=== PATIENT | female | born 1995 | race Caucasian/White ===

== ENCOUNTER 2022-12-30 07:27 | Inpatient (IN) | payer SELFPAY ==
[2022-12-30] MEDS: Lactated Ringers 1,000 ML IV SCH ×2 (07:27→08:05)
[2022-12-30] MEDS ORDERED: Sodium Chloride 0.9% 20 ML SDV IV PRN (07:36)
[2022-12-30] MEDS ORDERED: Methylergonovine 0.2 MG/1 ML Amp IM PRN (07:36)
[2022-12-30] MEDS ORDERED: Ondansetron 4 MG/2 ML SDV IVPUSH PRN (07:36)
[2022-12-30] MEDS ORDERED: Misoprostol 200 MCG Tab PO PRN (07:36)
[2022-12-30] MEDS ORDERED: Sodium Chloride 0.9% 10 ML Syringe FLUSH PRN (07:36)
[2022-12-30] MEDS ORDERED: Carboprost Tromethamine 250 MCG/1 mL Vial IM PRN (07:36)
[2022-12-30] MEDS ORDERED: Tranexamic Acid 1,000 MG in Sodium Chloride 0.9% 100 ML IV PRN (07:36)
[2022-12-30] MEDS ORDERED: Water For Irrigation,Sterile 1,000 ML Container IRR PRN (07:36)
[2022-12-30] MEDS ORDERED: Lidocaine 1% 50 ML MDV INJECT PRN (07:36)
[2022-12-30] MEDS ORDERED: Sodium Chloride 0.9% 2.5 ML Syringe FLUSH PRN (07:36)
[2022-12-30] MEDS ORDERED: Oxytocin/0.9 % Sodium Chloride 30 UNIT/500 ML BAG IV SCH (07:45)
[2022-12-30] MEDS ORDERED: Oxytocin/0.9 % Sodium Chloride 30 UNIT/500 ML BAG ONE (07:46)
[2022-12-30 07:48] LABS: HEMATOCRIT 39.2 % (36.0-46.0); HEMOGLOBIN 13.5 g/dL (12.0-16.0); MEAN CORPUSCULAR HGB CONC 34.4 g/dL (31.0-37.0); MEAN CORPUSCULAR VOLUME 90.1 fL (80.0-98.0); MEAN PLATELET VOLUME 11.8 fL (7.40-12.00); RED BLOOD CELL COUNT 4.35 M/uL (4.30-5.90); WHITE BLOOD CELL COUNT,WBC 12.15 K/uL (4.0-11.0)
[2022-12-30] MEDS ORDERED: fentaNYL 100 MCG/2 ML SDV ONE (08:03)
[2022-12-30] MEDS ORDERED: Bupivacaine 0.25% 10 ML SDV ONE (08:04)
[2022-12-30] MEDS ORDERED: Ibuprofen 400 MG Tab PO PRN (08:12)
[2022-12-30] MEDS ORDERED: oxyCODONE 5 MG Tab PO PRN (08:12)
[2022-12-30] MEDS ORDERED: Witch Hazel Medicated Pads 40/Jar TOP PRN (08:12)
[2022-12-30] MEDS ORDERED: Lanolin 100% Cream 7 GM Tube TOP PRN (08:12)
[2022-12-30] MEDS ORDERED: Bisacodyl 10 MG Supp RECTAL PRN (08:12)
[2022-12-30] MEDS ORDERED: Benzocaine/Menthol 20%-0.5% Spray 78 GM Cannister TOP PRN (08:12)
[2022-12-30] MEDS ORDERED: Docusate Sodium 100 MG Cap PO PRN (08:12)
[2022-12-30] MEDS ORDERED: Acetaminophen 500 MG Tab PO PRN ×2 (08:12)
[2022-12-30] MEDS ORDERED: Phenylephrine HCl 0.5 MG/5 ML AMP IVPUSH PRN (08:23)
[2022-12-30] MEDS ORDERED: ePHEDrine 50 MG/ML SDV IVPUSH PRN ×2 (08:23)
[2022-12-30] MEDS ORDERED: Ropivacaine HCl/PF 400 MG in Premix Bag 1 BAG EPIDUR SCH (08:30)
[2022-12-30] MEDS ORDERED: Diphtheria,Pertussis(Acell),Tetanus Vaccine 0.5 ML Syringe IM ONE (10:00)
[2022-12-30] MEDS: Ibuprofen 800 MG Tab PO PRN (16:16)
[2022-12-31] MEDS: Ibuprofen 800 MG Tab PO PRN (00:56)
[2022-12-31 06:02] LABS: HEMATOCRIT 34.8 % (36.0-46.0); HEMOGLOBIN 11.7 g/dL (12.0-16.0)
== END 2022-12-31 12:20 | disposition home or self-care (01) | DRG 807 ==
LOC: MW.OBCHECK 07:27 → MW.OB 07:33 → MW.OBCHECK 07:35 → MW.OB 07:36 → OBSVTOIN 08:34 → MW.OB 11:14
PROVIDERS: ADMIT Obstetrics & Gynecology; ATTEND Obstetrics & Gynecology
PROC: 10E0XZZ Delivery of Products of Conception, External Approach (ICD-10-PCS; principal; 2022-12-30)
PROC: 10907ZC Drainage of Amniotic Fluid, Therapeutic from Products of Conception, Via Natural or Artificial Opening (ICD-10-PCS; 2022-12-30)
PROC: 3E033VJ Introduction of Other Hormone into Peripheral Vein, Percutaneous Approach (ICD-10-PCS; 2022-12-30)
PROC: 3E0R3BZ Introduction of Anesthetic Agent into Spinal Canal, Percutaneous Approach (ICD-10-PCS; 2022-12-30)
PROC: 00HU33Z Insertion of Infusion Device into Spinal Canal, Percutaneous Approach (ICD-10-PCS; 2022-12-30)
DX: O80 Encounter for full-term uncomplicated delivery (principal); Z37.0 Single live birth; Z3A.39 39 weeks gestation of pregnancy
CPT/HCPCS: 00731; 36415; 59025; 59409; 85014; 85018; 85027; 86592; 86850; 86900; 86901; A9270-GY; J2590; J3010; J3490; J7120

== ENCOUNTER 2024-06-22 13:44 | Inpatient (IN) | payer SELFPAY ==
[2024-06-22] MEDS ORDERED: Sodium Chloride 0.9% 20 ML SDV IV PRN (13:53)
[2024-06-22] MEDS ORDERED: Carboprost Tromethamine 250 MCG/1 mL Vial IM PRN (13:53)
[2024-06-22] MEDS ORDERED: Lidocaine 1% 50 ML MDV INJECT PRN (13:53)
[2024-06-22] MEDS ORDERED: Methylergonovine 0.2 MG/1 ML Amp IM PRN (13:53)
[2024-06-22] MEDS ORDERED: Sodium Chloride 0.9% 10 ML Syringe FLUSH PRN (13:53)
[2024-06-22] MEDS ORDERED: Misoprostol 200 MCG Tab PO PRN ×2 (13:53→14:54)
[2024-06-22] MEDS ORDERED: Tranexamic Acid in NACL,ISO-OS 1,000 MG in Premix Bag 1 BAG IV PRN (13:53)
[2024-06-22] MEDS ORDERED: Sodium Chloride 0.9% 2.5 ML Syringe FLUSH PRN (13:53)
[2024-06-22] MEDS ORDERED: Ondansetron 4 MG/2 ML SDV IVPUSH PRN (13:53)
[2024-06-22] MEDS ORDERED: Water For Irrigation,Sterile 1,000 ML Container IRR PRN (13:53)
[2024-06-22] MEDS ORDERED: Butorphanol 2 MG/ML SDV IVPUSH PRN (13:53)
[2024-06-22] MEDS ORDERED: Lactated Ringers 1,000 ML IV SCH (14:00)
[2024-06-22 14:18] LABS: HEMATOCRIT 36.6 % (37.0-47.0); HEMOGLOBIN 12.8 g/dL (12.0-16.0); MEAN CORPUSCULAR HEMOGLOBIN 31.5 pg (28.0-32.0); MEAN CORPUSCULAR VOLUME 90.1 fL (83.0-99.0); MEAN PLATELET VOLUME 10.7 fL (9.4-12.3); PLATELET COUNT,PLT 220 K/uL (150-400); RED BLOOD CELL COUNT 4.06 M/uL (4.10-5.30); WHITE BLOOD CELL COUNT,WBC 13.04 K/uL (3.9-11.3)
[2024-06-22] MEDS: Ropivacaine HCl/PF 400 MG in Premix Bag 1 BAG EPIDUR SCH (14:37)
[2024-06-22] MEDS ORDERED: Phenylephrine HCl In 0.9% NaCl 1 MG/10 ML Syringe IVPUSH PRN (14:42)
[2024-06-22] MEDS ORDERED: ePHEDrine 50 MG/ML SDV IM PRN (14:42)
[2024-06-22] MEDS ORDERED: ePHEDrine 50 MG/ML SDV IVPUSH PRN (14:42)
[2024-06-22] MEDS ORDERED: Witch Hazel Medicated Pads 40/Jar TOP PRN (14:44)
[2024-06-22] MEDS ORDERED: Simethicone 80 MG Tab.Chew PO PRN (14:44)
[2024-06-22] MEDS ORDERED: Docusate Sodium 100 MG Cap PO PRN (14:44)
[2024-06-22] MEDS ORDERED: Benzocaine/Menthol 20%-0.5% Spray 78 GM Cannister TOP PRN (14:44)
[2024-06-22] MEDS ORDERED: dexmedeTOMIDine HCl 200 MCG/2 ML SDV EPIDUR SCH (14:45)
[2024-06-22] MEDS: Oxytocin/0.9 % Sodium Chloride 30 UNIT/500 ML BAG IV SCH (16:00)
[2024-06-22 17:02] LABS: HEPATITIS C AB# 0.1 INDEX (<0.8)
[2024-06-22] MEDS: Ibuprofen 800 MG Tab PO PRN (18:23)
[2024-06-22] MEDS: Lanolin 100% Cream 7 GM Tube TOP PRN (18:23)
[2024-06-22 18:29] LABS: PH,UMBILICAL ARTERIAL 7.401 (7.18-7.38); PH,UMBILICAL VENOUS 7.51 (7.25-7.45)
[2024-06-22] MEDS: Phenylephrine HCl In 0.9% NaCl 1 MG/10 ML Syringe ONE (22:42)
[2024-06-22] MEDS: Bupivacaine 0.5% 10 ML SDV ONE (22:43)
[2024-06-22] MEDS: Acetaminophen 500 MG Tab PO PRN (23:10)
[2024-06-23] MEDS: Ropivacaine HCl/PF 200 ML ONE (00:05)
[2024-06-23] MEDS: Bupivacaine 0.5% 10 ML SDV INJECT ONE (00:06)
[2024-06-23 06:09] LABS: HEMATOCRIT 37.5 % (37.0-47.0); HEMOGLOBIN 12.7 g/dL (12.0-16.0); MEAN CORPUSCULAR HEMOGLOBIN 31.4 pg (28.0-32.0); MEAN CORPUSCULAR HGB CONC 33.9 g/dL (32.0-36.0); MEAN CORPUSCULAR VOLUME 92.6 fL (83.0-99.0); MEAN PLATELET VOLUME 10.8 fL (9.4-12.3); PLATELET COUNT,PLT 181 K/uL (150-400); RED BLOOD CELL COUNT 4.05 M/uL (4.10-5.30); WHITE BLOOD CELL COUNT,WBC 12.37 K/uL (3.9-11.3)
== END 2024-06-23 19:58 | disposition home or self-care (01) | DRG 807 ==
LOC: MW.OBCHECK 13:44 → MW.OB 13:53 → MW.OBCHECK 13:54 → OBSVTOIN 15:57 → MW.OB 21:06
PROVIDERS: ADMIT Obstetrics & Gynecology; ATTEND Obstetrics & Gynecology
PROC: 10E0XZZ Delivery of Products of Conception, External Approach (ICD-10-PCS; principal; 2024-06-22)
PROC: 10907ZC Drainage of Amniotic Fluid, Therapeutic from Products of Conception, Via Natural or Artificial Opening (ICD-10-PCS; 2024-06-22)
PROC: 3E0R3BZ Introduction of Anesthetic Agent into Spinal Canal, Percutaneous Approach (ICD-10-PCS; 2024-06-22)
PROC: 00HU33Z Insertion of Infusion Device into Spinal Canal, Percutaneous Approach (ICD-10-PCS; 2024-06-22)
DX: O24.420 Gestational diabetes mellitus in childbirth, diet controlled (principal); Z37.0 Single live birth; O99.02 Anemia complicating childbirth; O69.1XX0 Labor and delivery complicated by cord around neck, with compression, not applicable or unspecified; O70.1 Second degree perineal laceration during delivery; Z3A.38 38 weeks gestation of pregnancy
CPT/HCPCS: 36415; 51702; 59025; 59409; 82803; 84112; 85027; 86592; 86803; 86850; 86900; 86901; A9270-GY; J0665; J2371; J2590; J2795